=== PATIENT | female | born 1995 | race American Indian/Alaskan Native ===

== ENCOUNTER 2020-10-01 13:57 | Emergency (ER) | payer SELFPAY ==
[2020-10-01 14:09] VITALS: BP 143/82
--- NOTE | 2020-10-01 15:05 | XRay Report ---
CHEST 2 VIEWS INDICATION: CP. COMPARISON: None FINDINGS: SUPPORT DEVICES: None. HEART: Within normal limits. LUNGS/PLEURA: No acute air space or interstitial disease. No pneumothorax. ADDITIONAL FINDINGS: None. IMPRESSION: 1. No acute findings. Signer Name: Eros Sellers MD Signed: 10/01/2020 3:00 PM Workstation Name: [id number]
--- NOTE | 2020-10-01 15:21 | Emergency Department Report ---
ED General Adult HPI - General Chief complaint: Chest Pain Stated complaint: CHEST PAIN Time Seen by Provider: 10/01/20 14:08 Source: patient Mode of arrival: Ambulatory Limitations: No Limitations - History of Present Illness Initial comments: Patient is a 24-year-old female presents emergency room complaints of left-sided chest pain that began 2 weeks ago. She states the pain is worse with movement and with lifting her arms and taking off her jacket. She states over the last 2 weeks she has had frequent anxiety attacks as well. She states occasionally the pain feels like a sharp pain or feels like a tightness when she begins to feel anxious. She states that she does have a history of depression and previously went to counseling but has never been on medications for it. She states that she also previously used to take Ambien. Patient states that she just moved here from [place] in July and does not yet have a job and she has a lot of increased stress secondary to her the move. She denies any SI or HI. She has not yet set up a doctor in [place]. She denies any nausea, vomiting, diarrhea, fever, cough, shortness of breath, leg swelling. She denies any recent surgery or hormone use. She denies any family history of [place]/DVT/PE. She has a past medical history of asthma. No allergies to medications. She denies tobacco u se. - Related Data Previous Rx's Medication Instructions Recorded Last Taken Type Naproxen [EC-Naprosyn] 500 mg PO BID PRN #14 tablet. 10/01/20 Unknown Rx hydrOXYzine PAMOATE [Vistaril] 25 mg PO Q8HR PRN #12 capsule 10/01/20 Unknown Rx Allergies Allergy/AdvReac Type Severity Reaction Status Date / Time No Known Allergies Allergy Unverified 10/01/20 14:03 ED Review of Systems ROS: Stated complaint: CHEST PAIN Other details as noted in HPI Comment: All other systems reviewed and negative ED Past Medical Hx - Past Medical History Hx Asthma: Yes Additional medical history: ALLERGIES - Surgical History Additional Surgical History: T&A - Medications Home Medications: Home Medications Medication Instructions Recorded Confirmed Last Taken Type Naproxen [EC-Naprosyn] 500 mg PO BID PRN #14 tablet. 10/01/20 Unknown Rx hydrOXYzine PAMOATE [Vistaril] 25 mg PO Q8HR PRN #12 capsule 10/01/20 Unknown Rx ED Physical Exam - General Limitations: No Limitations General appearance: alert, in no apparent distress - Head Head exam: Present: atraumatic, normocephalic - Eye Eye exam: Present: normal appearance - ENT ENT exam: Present: mucous membranes moist - Respiratory Respiratory exam: Present: normal lung sounds bilaterally, chest wall tenderness (reproducible left anterior chest wall ttp, no crepitus, no deformity, no ecchymosis). Absent: respiratory distress, wheezes, rales, rhonchi, stridor, accessory muscle use, decreased breath sounds, prolonged expiratory - Cardiovascular Cardiovascular Exam: Present: regular rate, normal rhythm, normal heart sounds. Absent: systolic murmur, diastolic murmur, rubs, gallop - Extremities Exam Extremities exam: Absent: pedal edema, calf tenderness - Neurological Exam Neurological exam: Present: alert, oriented X3 - Psychiatric Psychiatric exam: Present: normal affect, normal mood - Skin Skin exam: Present: warm, dry, intact ED Course Vital Signs 10/01/20 14:08 Temperature 97.9 F Pulse Rate 83 Respiratory 20 Rate Blood Pressure 143/82 O2 Sat by Pulse 99 Oximetry ED Medical Decision Making - EKG Data EKG shows normal: sinus rhythm, axis, ST-T waves Rate: normal - EKG Data 10/01/20 15:22 low voltage no STEMI - Radiology Data Radiology results: report reviewed Ordering Physician: JESS ARAYA Date of Service: 10/01/20 Procedure(s): XR chest routine 2V Accession Number(s): [id number] cc: JESS ARAYA Fluoro Time In Minutes: CHEST 2 VIEWS INDICATION: CP. COMPARISON: None FINDINGS: SUPPORT DEVICES: None. HEART: Within normal limits. LUNGS/PLEURA: No acute air space or interstitial disease. No pneumothorax. ADDITIONAL FINDINGS: None. IMPRESSION: 1. No acute findings. Signer Name: Eros Sellers MD Signed: 10/01/2020 3:00 PM Workstation Name: [id number] Transcribed By: STACY Dictated By: Eros Sellers MD Electronically Authenticated By: Eros Sellers MD Signed Date/Time: 10/01/20 1500 DD/ 1459 TD/TT: - Medical Decision Making Patient is a 24-year-old female presents emergency room complaints of left-sided chest pain that began 2 weeks ago. She states the pain is worse with movement and with lifting her arms and taking off her jacket. She states over the last 2 weeks she has had frequent anxiety attacks as well. She states occasionally the pain feels like a sharp pain or feels like a tightness when she begins to feel anxious. She states that she does have a history of depression and previously went to counseling but has never been on medications for it. She states that she also previously used to take Ambien. Patient states that she just moved here from [place] in July and does not yet have a job and she has a lot of increased stress secondary to her the move. She denies any SI or H I. She has not yet set up a doctor in [place]. She denies any nausea, vomiting, diarrhea, fever, cough, shortness of breath, leg swelling. She denies any recent surgery or hormone use. She denies any family history of [place]/DVT/PE. She has a past medical history of asthma. No allergies to medications. She denies tobacco use. VSS. no tachycardia. on exam: reproducible left anterior chest wall ttp, no crepitus, no deformity, no ecchymosis. CXR: 1. No acute findings. EKG with low voltage, otherwise stable. pt is PERC criteria negative for PE. examination appears consistent with costochrondritis and anxiety. no significant risk factors and symptoms not consistent with ACS. given prescription for naproxen and robaxin. advised pt please use medication as prescribed. May use ice pack, heating pad, rest, Epsom salt bath. Follow-up with your primary care doctor. Follow-up with [facility]. Return to emergency room immediately for any new or worsening symptoms. Critical care attestation.: If time is entered above; I have spent that time in minutes in the direct care of this critically ill patient, excluding procedure time. ED Disposition Clinical Impression: Atypical chest pain, Anxiety Disposition: DC-01 TO HOME OR SELFCARE Is pt being admited?: No Does the pt Need Aspirin: No Condition: Stable Instructions: Managing Anxiety, Adult, Costochondritis, Chest Pain (ED) Additional Instructions: Please use medication as prescribed. May use ice pack, heating pad, rest, Epsom salt bath. Follow-up with your primary care doctor. Follow-up with [facility]. Return to emergency room immediately for any new or worsening symptoms. Prescriptions: Naproxen [EC-Naprosyn] 500 mg PO BID PRN #14 tablet. PRN Reason: pain hydrOXYzine PAMOATE [Vistaril] 25 mg PO Q8HR PRN #12 capsule PRN Reason: anxiety Referrals: PRIMARY CAREMD [Primary Care Provider] - 3-5 Days DERRICK COUGHLIN MD [Staff Physician] - 3-5 Days [facility] [Provider Group] - 3-5 Days [facility], [LAB/CONTRACT] - 3-5 Days [facility] [Outside] - 3-5 Days Time of Disposition: 15:23 Print Language: TURKMEN
== END 2020-10-01 15:34 | disposition home or self-care (01) ==
LOC: ED 13:57
DX: R07.89 Other chest pain (principal); F41.9 Anxiety disorder, unspecified; J45.909 Unspecified asthma, uncomplicated; Z79.899 Other long term (current) drug therapy
CPT/HCPCS: 71046; 93005; 99283

== ENCOUNTER 2020-10-07 13:48 | Emergency (ER) | payer SELFPAY ==
--- NOTE | 2020-10-07 15:28 | XRay Report ---
XR chest routine 2V INDICATION / CLINICAL INFORMATION: shortness of breath. COMPARISON: 10/01/2020 FINDINGS: SUPPORT DEVICES: None. HEART /PULMONARY VASCULATURE: No significant abnormality. LUNGS / PLEURA: No significant pulmonary or pleural abnormality. No pneumothorax. ADDITIONAL FINDINGS: No significant additional findings. IMPRESSION: 1. No acute findings. Signer Name: Javier Terry MD Signed: 10/07/2020 3:24 PM Workstation Name: [id number] [email or web address] [id number]
--- NOTE | 2020-10-07 15:36 | Emergency Department Report ---
ED General Adult HPI - General Chief complaint: Chest Pain Stated complaint: CHEST PAINS Source: patient Mode of arrival: Ambulatory Limitations: No Limitations - History of Present Illness Initial comments: Patient is a 24-year-old female presents emergency room complaints of left-sided chest pain that began 3 weeks ago. She states the pain is worse with movement and with lifting her arms. She states over the last 3 weeks she has had frequent anxiety attacks as well. She states that she does have a history of depression and previously went to counseling but has never been on medications for it. She states that she also previously used to take Ambien. Patient states that she just moved here from [place] in July and does not yet have a job and she has a lot of increased stress secondary to her the move. She denies any SI or HI. She has not yet set up a doctor in [place]. She denies any nausea, vomiting, diarrhea, fever, cough, shortness of breath, leg swelling. She denies any recent surgery or hormone use. She denies any family history of VT/DVT/PE. She has a past medical history of asthma. No allergies to medications. She denies tobacco use. Patient was evaluated for the same symptoms a week ago in the emergency department and had a EKG and chest x-ray at that time within normal limits, she has not followed up with her primary care doctor or [facility]. she denies any HI/SI/hallucinations. - Related Data Previous Rx's Medication Instructions Recorded Last Taken Type Naproxen [EC-Naprosyn] 500 mg PO BID PRN #14 tablet. 10/01/20 Unknown Rx hydrOXYzine PAMOATE [Vistaril] 25 mg PO Q8HR PRN #12 capsule 10/01/20 Unknown Rx Allergies Allergy/AdvReac Type Severity Reaction Status Date / Time No Known Allergies Allergy Unverified 10/01/20 14:03 ED Review of Systems ROS: Stated complaint: CHEST PAINS Other details as noted in HPI Comment: All other systems reviewed and negative ED Past Medical Hx - Past Medical History Hx Asthma: Yes Additional medical history: ALLERGIES - Surgical History Additional Surgical History: T&A - Social History Smoking Status: Never Smoker - Medications Home Medications: Home Medications Medication Instructions Recorded Confirmed Last Taken Type Naproxen [EC-Naprosyn] 500 mg PO BID PRN #14 tablet. 10/01/20 Unknown Rx hydrOXYzine PAMOATE [Vistaril] 25 mg PO Q8HR PRN #12 capsule 10/01/20 Unknown Rx ED Physical Exam - General Limitations: No Limitations General appearance: alert, in no apparent distress - Head Head exam: Present: atraumatic, normocephalic - Eye Eye exam: Present: normal appearance - ENT ENT exam: Present: mucous membranes moist - Respiratory Respiratory exam: Present: normal lung sounds bilaterally, chest wall tenderness (mild reproductible left anterior chest wall ttp, no crepitus, no deformities). Absent: respiratory distress, wheezes, rales, rhonchi, stridor, accessory muscle use, decreased breath sounds, prolonged expiratory - Cardiovascular Cardiovascular Exam: Present: regular rate, normal rhythm, normal heart sounds. Absent: systolic murmur, diastolic murmur, rubs, gallop - Extremities Exam Extremities exam: Absent: pedal edema - Neurological Exam Neurological exam: Present: alert, oriented X3 - Psychiatric Psychiatric exam: Present: normal affect, normal mood - Skin Skin exam: Present: warm, dry, intact ED Course Vital Signs 10/07/20 13:57 Temperature 98.2 F Pulse Rate 90 Respiratory 20 Rate Blood Pressure 144/91 O2 Sat by Pulse 100 Oximetry ED Medical Decision Making - EKG Data EKG shows normal: sinus rhythm, axis, intervals, ST-T waves Rate: normal - EKG Data 10/07/20 15:45 low voltage no STEMI - Radiology Data Radiology results: report reviewed, image reviewed Ordering Physician: BERNABE ADAME Date of Service: 10/07/20 Procedure(s): XR chest routine 2V Accession Number(s): [id number] cc: BERNABE ADAME Fluoro Time In Minutes: XR chest routine 2V INDICATION / CLINICAL INFORMATION: shortness of breath. COMPARISON: 10/01/2020 FINDINGS: SUPPORT DEVICES: None. HEART /PULMONARY VASCULATURE: No significant abnormality. LUNGS / PLEURA: No significant pulmonary or pleural abnormality. No pneumothorax. ADDITIONAL FINDINGS: No significant additional findings. IMPRESSION: 1. No acute findings. Signer Name: Sal Camacho MD Signed: 10/07/2020 3:24 PM Workstation Name: [id number] Transcribed By: JS Dictated By: SAL CAMACHO MD Electronically Authenticated By: SAL CAMACHO MD Signed Date/Time: 10/07/20 1524 DD/ 1523 TD/TT: - Medical Decision Making Patient is a 24-year-old female presents emergency room complaints of left-sided chest pain that began 3 weeks ago. She states the pain is worse with movement and with lifting her arms. She states over the last 3 weeks she has had frequent anxiety attacks as well. She states that she does have a history of depression and previously went to counseling but has never been on medications for it. She states that she also previously used to take Ambien. Patient states that she just moved here from [place] in July and does not yet have a job and she has a lot of increased stress secondary to her the move. She denies any SI or HI. She has not yet set up a doctor in [place]. She denies any nausea, vomiting, diarrhea, fever, cough, shortness of breath, leg swelling. She denies any recent surgery or hormone use. She denies any family history of VT/DVT/PE. She has a past medical history of asthma. No allergies to medications. She denies tobacco use. Patient was evaluated for the same symptoms a week ago in the emergency department and had a EKG and chest x-ray at that time within normal limits, she has not followed up with her primary care doctor or [facility]. she denies any HI/SI/hallucinations. VSS. on exam: mild reproductible left anterior chest wall ttp, no crepitus, no deformities. EKG and chest x-ray ordered prior to my examination. Chest x-ray no acute process. EKG low voltage, otherwise normal. Symptoms appear most consistent with costochondritis and anxiety. PERC criteria negative for PE, PE unlikely. Heart score is 1, low risk for cardiac event, symptoms do not appear consistent with ACS. advised pt Please continue taking medication you were given during your last emergency department visit as needed. May use ice pack, heating pad, rest, Epsom salt bath. Follow-up with your primary care doctor. Follow-up with the [facility] for anxiety. Return to emergency room for any new or worsening symptoms. Critical care attestation.: If time is entered above; I have spent that time in minutes in the direct care of this critically ill patient, excluding procedure time. ED Disposition Clinical Impression: Atypical chest pain, Anxiety Disposition: TO HOME OR SELFCARE Is pt being admited?: No Does the pt Need Aspirin: No Condition: Stable Instructions: Costochondritis, [id number], Managing Anxiety, Adult, Chest Pain (ED) Additional Instructions: Please continue taking medication you were given during your last emergency department visit as needed. May use ice pack, heating pad, rest, Epsom salt bath. Follow-up with your primary care doctor. Follow-up with the [facility] for anxiety. Return to emergency room for any new or worsening symptoms. Referrals: PRIMARY MD FRANK [Primary Care Provider] - 2-3 Days DERRICK COUGHLIN MD [Staff Physician] - 2-3 Days [facility], [LAB/CONTRACT] - 2-3 Days [facility] [Provider Group] - 2-3 Days [facility] [Outside] - 2-3 Days Time of Disposition: 15:45 Print Language: NAMIBIAN HEART Score - HEART Score History: Slightly suspicious EKG: Normal Age: < 45 Risk factors: 1-2 risk factors Troponin: < normal limit HEART Score: 1
[2020-10-07 15:37] VITALS: BP 144/91
== END 2020-10-07 15:54 | disposition home or self-care (01) ==
LOC: ED 13:48
DX: F41.9 Anxiety disorder, unspecified (principal); R07.89 Other chest pain; J45.909 Unspecified asthma, uncomplicated; Z98.890 Other specified postprocedural states; Z79.899 Other long term (current) drug therapy
CPT/HCPCS: 71046; 93005